=== PATIENT | male | born 1985 | race Asian ===

== ENCOUNTER 2019-10-11 18:09 | Emergency (ER) | payer MEDICAID ==
[~2019-10-11] VITALS: Ht 167.6 cm; Wt 60.0 kg
[2019-10-11] MEDS ORDERED: HYDROCODONE/ACETAMINOPHEN 5/325MG TABLET PO ONE (20:00)
[2019-10-11] MEDS ORDERED: ONDANSETRON 4MG ODT PO ONE (20:00)
[2019-10-11 21:13] VITALS: BP 135/78
== END 2019-10-11 21:14 | disposition home or self-care (01) ==
LOC: ER 18:19
DX: S09.90XA Unspecified injury of head, initial encounter (principal); M54.2 Cervicalgia; M54.6 Pain in thoracic spine; R07.89 Other chest pain; M25.511 Pain in right shoulder; R03.0 Elevated blood-pressure reading, without diagnosis of hypertension; V49.59XA Passenger injured in collision with other motor vehicles in traffic accident, initial encounter; Y93.89 Activity, other specified; Y92.410 Unspecified street and highway as the place of occurrence of the external cause
CPT/HCPCS: 70450; 71045; 72070; 72125; 99284; Q0162

== ENCOUNTER 2022-04-03 20:15 | Emergency (ER) | payer MEDICAID ==
[~2022-04-03] VITALS: Ht 167.6 cm; Wt 67.0 kg
[2022-04-03] MEDS ORDERED: IBUP-2028 MT (23:06)
[2022-04-03] MEDS ORDERED: IBUPROFEN 400MG TABLET PO ONE (23:15)
[2022-04-03 23:37] VITALS: BP 120/80
== END 2022-04-03 23:55 | disposition home or self-care (01) ==
LOC: ER 20:15
DX: M54.50 Low back pain, unspecified (principal)
CPT/HCPCS: 99282

== ENCOUNTER 2022-04-20 13:36 | Emergency (ER) | payer MEDICAID ==
[~2022-04-20] VITALS: Ht 170.2 cm; Wt 68.0 kg
[~2022-04-20 13:36] MED LIST: IBUP-2028 MT
[2022-04-20] MEDS ORDERED: IBUPROFEN 600MG TABLET PO ONE (15:30)
[2022-04-20] MEDS ORDERED: IBUP-2029 MT (16:15)
[2022-04-20 16:37] VITALS: BP 123/71
== END 2022-04-20 16:37 | disposition home or self-care (01) ==
LOC: ER 14:02
DX: S69.82XA Other specified injuries of left wrist, hand and finger(s), initial encounter (principal); X50.0XXA Overexertion from strenuous movement or load, initial encounter; Y93.89 Activity, other specified; Y92.89 Other specified places as the place of occurrence of the external cause; Y99.8 Other external cause status
CPT/HCPCS: 29125; 73110; 99283